=== PATIENT | male | born 2000 | race Hispanic/Latino ===

== ENCOUNTER 2024-07-26 11:17 | Emergency (ER) | payer BC ==
[2024-07-26 12:21] LABS: Absolute Basophils 0.1 K/uL (0-0.5); Absolute Eosinophils 0.1 K/uL (0-0.5); Absolute Lymphocytes (CBC) 1.5 K/uL (0.7-4.9); Absolute Monocytes 0.5 K/uL (0.1-1.3); Absolute Neutrophil 8.1 K/uL (1.8-8.0); Basophils % 0.6 % (0-1.3); Eosinophils % 0.5 % (0-4.4); Hematocrit 47.3 % (39.6-49.0); Hemoglobin 16.8 g/dL (13.6-17.9); Lymphocytes % 14.5 % (15.3-44.8); MCH 31.6 pg (27.0-35.0); MCHC 35.5 g/dL (32.0-36.0); MCV 89.1 fL (80-100); Monocytes % 5.3 % (3.3-12.3); Neutrophils % 79.1 % (41.7-73.7); Nucleated Red Blood Cells % 0.1 % (0-0); Platelets 276 thou/uL (152-406); RBC Red Blood Cell Count 5.31 M/uL (4.33-5.43); Red Cell Distribution Width 12.5 % (12.1-15.2)
[2024-07-26 12:38] LABS: Albumin 3.9 g/dL (3.4-5.0); Albumin/Globulin Ratio 0.9 (1.1-1.8); Anion Gap 11.1 mEq/L (5.0-15.0); Bilirubin Total 0.8 mg/dL (0.2-1.0); Globulin 4.2 g/dL (2.3-3.5); Potassium 4.1 mEq/L (3.5-5.1); Protein, Total 8.1 g/dL (6.4-8.2)
--- NOTE | 2024-07-26 13:29 | RAD REPORT ---
EXAMINATION: CT Abdomen Pelvis W Contrast CLINICAL INDICATION: Male, 24 years old. ABD PAIN TECHNIQUE: CT abdomen and pelvis was performed, after the administration of IV contrast[facility]. Axial, sagittal and coronal reconstructions were obtained. One or more of the following dose reduction techniques were used: Automated exposure control, adjustment of the mA and k V according to patient size, and iterative reconstruction. Unless otherwise specified, incidental findings do not require dedicated imaging follow-up. COMPARISON: No prior exam. FINDINGS: LOWER CHEST: The visualized lung bases are clear. LIVER: Normal in size and contour. No focal lesion. BILIARY SYSTEM: Moderately distended gallbladder, a nonspecific finding. No other suspicious abnormal ities. SPLEEN: Normal size. No focal lesion. PANCREAS: No mass, ductal dilation, or ángel-pancreatic fluid. ADRENALS: Normal; no mass. KIDNEYS: Normal size and contour. No hydronephrosis. URINARY BLADDER: Unremarkable. GASTROINTESTINAL TRACT: No evidence of free air, significant intra-abdominal free fluid, bowel obstru ction or abscess. APPENDIX: Normal appendix. LYMPH NODES: No lymphadenopathy. MUSCULOSKELETAL: No acute or suspicious osseous abnormality. ADDITIONAL FINDINGS: None. IMPRESSION: No acute or concerning abnormalities seen in the abdomen or pelvis.
--- NOTE | 2024-07-26 13:39 | EDPHYS ---
Physician Documentation [facility] Name: Jun Patel Age: 24 yrs Sex: Male : 2000 Arrival Date: 07/26/2024 Time: 11:17 Bed 16 Private MD: ED Physician Humza Sewell HPI: 07/26 15:13 This 24 yrs old Male presents to ER via EMS with complaints of Nausea/Vomiting.rt 15:13 Patient had a recent doubling of his Ozempic dose, last dose was on Wednesday. States that rt he developed nausea and vomiting today with an upper abdominal pain. Denies other acute complaints at this time, symptoms are moderate in severity, no other aggravating or alleviating factors.. Historical: - Allergies: 11:18 No Known Allergies; db - PMHx: 11:18 Diabetes mellitus; db - Immunization history:: Adult Immunizations unknown. - Infectious Disease History:: Denies. - Social history:: Smoking status: Reported history of juuling and/or vaping. - Family history:: not pertinent. ROS: 15:13 Constitutional: Negative for fever, chills, and weight loss, Cardiovascular: Negative rt for chest pain, palpitations, and edema, Respiratory: Negative for shortness of breath, cough, wheezing, and pleuritic chest pain, MS/Extremity: Negative for injury and deformity, Skin: Negative for injury, rash, and discoloration, Neuro: Negative for headache, weakness, numbness, tingling, and seizure, 15:13 Abdomen/GI: Positive for abdominal pain, nausea and vomiting, Exam: 15:13 Constitutional: This is a well developed, well nourished patient who is awake, alert, rt and in no acute distress. Head/Face: Normocephalic, atraumatic. Chest/axilla: Normal chest wall appearance and motion. Nontender with no deformity. No lesions are appreciated. Cardiovascular: Regular rate and rhythm with a normal S1 and S2. No gallops, murmurs, or rubs. Normal PMI, no JVD. No pulse deficits. Respiratory: Lungs have equal breath sounds bilaterally, clear to auscultation and percussion. No rales, rhonchi or wheezes noted. No increased work of breathing, no retractions or nasal flaring. Skin: Warm, dry with normal turgor. Normal color with no rashes, no lesions, and no evidence of cellulitis. MS/ Extremity: Pulses equal, no cyanosis. Neurovascular intact. Full, normal range of motion. Neuro: Awake and alert, GCS 15, oriented to person, place, time, and situation. Cranial nerves II-XII grossly intact. Motor strength 5/5 in all extremities. Sensory grossly intact. Cerebellar exam normal. Normal gait. 15:13 Abdomen/GI: Mild tenderness to the epigastrium without rebound, guarding, distention, Vital Signs: 11:18 BP 140 / 94; Pulse 89; Resp 18; Temp 98.1; Pulse Ox 95% ; Weight 122.92 kg; Height 5 db ft. 8 in. ; 12:14 BP 134 / 88; Pulse 83; Resp 16; Pulse Ox 98% on R/A; dd2 13:47 BP 120 / 72; Pulse 78; Resp 16; Pulse Ox 100% on R/A; dd2 11:18 Body Mass Index 41.20 (122.92 kg, 172.72 cm) db MDM: 11:33 Medical Screening Exam initiated rt 15:13 Differential diagnosis: Pancreatitis, bowel obstruction, cholecystitis, medication side rt effect. Data reviewed: vital signs, nurses notes. Independent interpretation of the following test(s) in the Emergency Department CT Scan: My interpretation is No bowel obstruction seen on interpretation of CT scan images. Care significantly affected by the following chronic conditions: Diabetes. Counseling: I had a detailed discussion with the patient and/or guardian regarding the historical points, exam findings, and any diagnostic results supporting the discharge/admit diagnosis, lab results, radiology results, the need for outpatient follow up, to return to the emergency department if symptoms worsen or persist or if there are any questions or concerns that arise at home. Response to treatment: the patient's symptoms have markedly improved after treatment. 07/26 11:40 Order name: CBC with Diff rt 07/26 11:40 Order name: CMP; Complete Time: 12:43 rt 07/26 11:40 Order name: Lipase; Complete Time: 12:43 rt 07/26 11:40 Order name: CT Abd/Pelvis - IV Contrast Only; Complete Time: 13:33 rt 07/26 11:40 Order name: IV Saline Lock; Complete Time: 12:11 rt 07/26 11:40 Order name: Labs collected and sent; Complete Time: 12:11 rt Administered Medications: No medications were administered Disposition Summary: 07/26/24 13:38 Discharge Ordered Notes: Location: Home rt Problem: new rt Symptoms: have improved rt Condition: Stable rt Diagnosis - Nausea with vomiting, unspecified rt Followup: rt - With: Private Physician - When: 2 - 3 days - Reason: Discharge Instructions: - Discharge Summary Sheet rt - Nausea and Vomiting, Adult rt Forms: - Work release form rt - Medication Reconciliation Form rt - Antibiotic Education rt - Prescription Opioid Use rt - Patient Portal Instructions rt - Leadership Thank You Letter rt Prescriptions: - ondansetron 4 mg Oral Tablet,disintegrating - take 1 tablet ORAL route every 6 hours as needed for nausea; 15 tablet; rt Refills: 0, Product Selection Permitted Signatures: Dispatcher [employer] Sulema Banegas, RN RN Humza Carranza MD MD rt
--- NOTE | 2024-07-26 13:39 | ER ---
Nurse's Notes [facility] Name: Jun Patel Age: 24 yrs Sex: Male : 2000 Arrival Date: 07/26/2024 Time: 11:17 Bed 16 Private MD: Diagnosis: Nausea with vomiting, unspecified Presentation: 07/26 11:18 Chief complaint: EMS states: N/V WHILE AT WORK. TAKING OZEMPIC AND HAD INCREASED DOSE db ON WEDNESDAY. Coronavirus screen: Client denies travel out of the [place] in the last 14 days. At this time, the client does not indicate any symptoms associated with coronavirus-19. Ebola Screen: Patient negative for fever greater than or equal to 101.5 degrees Fahrenheit, and additional compatible Ebola Virus Disease symptoms Patient denies exposure to infectious person. Patient denies travel to an Ebola-affected area in the 21 days before illness onset. No symptoms or risks identified at this time. Initial Sepsis Screen: Does the patient meet any 2 criteria? Yes Does the patient have a suspected source of infection? No. Patient's initial sepsis screen is negative. Risk Assessment: Do you want to hurt yourself or someone else? Patient reports no desire to harm self or others. Onset of symptoms was July 26, 2024. 11:18 Method Of Arrival: EMS: [facility] db 11:18 Acuity: KE 3 db Triage Assessment: 11:18 General: Appears in no apparent distress. comfortable, Behavior is calm, cooperative. db Pain: Denies pain. Neuro: Level of Consciousness is awake, alert, obeys commands, Oriented to person, place, time, situation. Respiratory: Airway is patent Respiratory effort is even, unlabored, Respiratory pattern is regular, symmetrical. GI: Reports nausea, vomiting. Historical: - Allergies: 11:18 No Known Allergies; db - PMHx: 11:18 Diabetes mellitus; db - Immunization history:: Adult Immunizations unknown. - Infectious Disease History:: Denies. - Social history:: Smoking status: Reported history of juuling and/or vaping. - Family history:: not pertinent. Screenin:12 [facility] ED Fall Risk Assessment (Adult) History of falling in the last 3 months, dd2 including since admission No falls in past 3 months (0 pts) Confusion or Disorientation No (0 pts) Intoxicated or Sedated No (0 pts) Impaired Gait No (0 pts) Mobility Assist Device Used No (0 pt) Altered Elimination No (0 pt) Score/Fall Risk Level 0 - 2 = Low Risk Oriented to surroundings, Maintained a safe environment, Educated pt \T\ family on fall prevention, incl call for assistance when getting out of bed, Assessed \T\ reinforced patient's understanding of fall precautions, Hourly rounding (assess needs \T\ fall precautionary measures) done. Abuse screen: Denies threats or abuse. Denies injuries from another. Nutritional screening: No deficits noted. Tuberculosis screening: No symptoms or risk factors identified. Assessment: 11:36 Reassessment: Patient appears in no apparent distress at this time. Patient and/or db family updated on plan of care and expected duration. Pain level reassessed. Patient is alert, oriented x 3, equal unlabored respirations, skin warm/dry/pink. SEE TRIAGE FOR INITIAL ASSESSMENT. 11:36 GI: Reports nausea, vomiting. db Vital Signs: 11:18 BP 140 / 94; Pulse 89; Resp 18; Temp 98.1; Pulse Ox 95% ; Weight 122.92 kg; Height 5 db ft. 8 in. ; 12:14 BP 134 / 88; Pulse 83; Resp 16; Pulse Ox 98% on R/A; dd2 13:47 BP 120 / 72; Pulse 78; Resp 16; Pulse Ox 100% on R/A; dd2 11:18 Body Mass Index 41.20 (122.92 kg, 172.72 cm) db ED Course: 11:18 Arm band placed on Patient placed in an exam room. db 11:21 Patient arrived in ED. db 11:21 Humza Sewell MD is Attending Physician. rt 11:33 Sulema North, RODRICK is Primary Nurse. db 11:35 Triage completed. db 12:11 CBC with Diff Sent. dd2 12:11 CMP Sent. dd2 12:11 Lipase Sent. dd2 12:12 Patient has correct armband on for positive identification. Bed in low position. Call dd2 light in reach. Client placed on continuous cardiac and pulse oximetry monitoring. NIBP monitoring applied. Door closed. Noise minimized. Pillow given. Verbal reassurance given. 12:12 No provider procedures requiring assistance completed. Initial lab(s) drawn, by me, dd2 sent to lab. Inserted saline lock: 20 gauge in left antecubital area, using aseptic technique. Blood collected. Flushed with 10 mL NS. Patient maintains SpO2 saturation greater than 95% on room air. 12:21 CT Abd/Pelvis - IV Contrast Only In Process Unspecified. EDMS 13:56 Provided Education on: d/c education. dd2 13:56 IV discontinued, intact, bleeding controlled, No redness/swelling at site. Pressure dd2 dressing applied. Administered Medications: No medications were administered Medication: 12:14 VIS not applicable for this client. dd2 Outcome: 13:38 Discharge ordered by . rt 13:56 Discharged to home ambulatory, dd2 13:56 Condition: stable 13:56 Discharge instructions given to patient, Instructed on discharge instructions, follow up and referral plans. medication usage, Demonstrated understanding of instructions, follow-up care, medications, Prescriptions given X 1, 13:57 Patient left the ED. dd2 Signatures: Dispatcher [employer] Sulema Banegas RN RN db Humza Sewell MD MD rt MARIYA NIEVES RN RN dd2
[2024-07-26 15:04] LABS: Blood Morphology Comment NOT SEEN (NOT SEEN); Platelet Estimate ADEQ; White Blood Cell Scan OK (OK)
[2024-07-26 17:27] VITALS: TEMP 98.1
[2024-07-26 17:29] VITALS: BP 120/72; O2SAT 100
== END 2024-07-26 13:57 | disposition home or self-care (01) ==
LOC: ER 11:17
DX: R11.2 Nausea with vomiting, unspecified (principal); E11.9 Type 2 diabetes mellitus without complications
CPT/HCPCS: 85025; 36415; 83690; 80053; 74177; Q9967